=== PATIENT | female | born 1990 | race Caucasian/White ===

== ENCOUNTER → 2019-01-22 | Outpatient (CLI) | payer BC | LOC: LAB FS 09:58 | PROVIDERS: ATTEND Obstetrics & Gynecology | DX: O20.9 Hemorrhage in early pregnancy, unspecified (principal); Z3A.00 Weeks of gestation of pregnancy not specified | CPT/HCPCS: 36415; 84702 ==

== ENCOUNTER 2020-12-21 01:13 | Day surgery (SDC) | payer BC ==
[2020-12-21] VITALS (10 sets, daily range): BP systolic 107–120; BP diastolic 65–77
[~2020-12-21] VITALS: Ht 170.1 cm; Wt 81.6 kg
[2020-12-21] MEDS ORDERED: ONDANSETRON 4 MG/2 ML (SDV) Z0FRAN IVP STA (01:28)
[2020-12-21] MEDS ORDERED: NS IV 1000 ML 1,000 ML IV STA (01:28)
[2020-12-21] MEDS ORDERED: fentaNYL INJ 100 MCG/2 ML AMP IVP STA ×2 (01:28→03:33)
[2020-12-21] MEDS ORDERED: KETOROLAC 30 MG/ML VIAL IVP STA (01:28)
[2020-12-21 01:30] LABS: BACTERIA,URINE TRACE /HPF; BILIRUBIN,URINE NEGATIVE (NEGATIVE); CLARITY,URINE CLEAR; COLOR,URINE YELLOW; GLUCOSE, URINE (UA) NEGATIVE (NEGATIVE); KETONES,URINE NEGATIVE (NEGATIVE); LEUKOCYTE ESTERASE ,URINE NEGATIVE (NEGATIVE); NITRITE,URINE NEGATIVE (NEGATIVE); PH,URINE 7.5 (5-9); PROTEIN,URINE NEGATIVE (NEGATIVE); WBC,URINE 0-2 /HPF
[2020-12-21 01:35] LABS: HEMATOCRIT 43 % (35-52); HEMOGLOBIN 14.8 g/dL (11.5-16.0); MEAN CORPUSCULAR HEMOGLOBIN 32 pg (25-34); MEAN CORPUSCULAR HGB CONC 34 g/dL (32-36); MEAN CORPUSCULAR VOLUME 92 fL (80-99); PLATELET COUNT 297 10^3/uL (130-400); WHITE BLOOD COUNT 13.7 10^3/uL (4.3-11.0)
--- NOTE | 2020-12-21 01:35 | ED Abdominal Pain ---
General Chief Complaint: Abdominal/GI Problems Stated Complaint: RIGHT FLANK AND ABD PAIN Source of Information: Patient History of Present Illness Date Seen by Provider: Dec 21, 2020 Time Seen by Provider: 01:16 Initial Comments 30-year-old female presenting with complaints of low back pain for the last few days and then not feeling well throughout the day today as well as sudden more severe pain at 4 PM. The more severe pain today started more the periumbilical area and moved to her right lower quadrant and flank. Her last menstrual period was approximately 3 weeks ago and she is on control as well as had a tubal ligation in July. She has had nausea but no vomiting. She tried to eat supper around 630 and was feeling too sick to eat very much. She has no burning with urination. She states that she has had frequent urination and small bowel movements throughout the day when she was not feeling well. She denies any fever or chills. She still has her appendix. She did have painful ovarian cysts when she was younger. She denies any blood in urine or stool. Severity/Quality: Severe Location: RLQ, Flank Radiation: RLQ, Flank Modifying Factors: Worsens With Eating, Worsens With Movement, Worsens With Palpation Associated Symptoms: Back Pain (low back pain for last few days); No Chest Pain, No Diaphoresis, No Fever/Chills, No Fatigue, No Headache, No Heartburn; Nausea/Vomiting (nausea but no vomiting); No Shortness of Air, No Swelling/Mass in Abdomen, No Syncope, No Weakness Allergies and Home Medications Allergies Coded Allergies: No Known Drug Allergies (Unverified , 12/21/20) Patient Home Medication List Home Medication List Reviewed: Yes Review of Systems Review of Systems Constitutional: No chills, No fever EENTM: No Symptoms Reported Respiratory: No Symptoms Reported Cardiovascular: No Symptoms Reported Gastrointestinal: See HPI Genitourinary: See HPI; Denies Burning Musculoskeletal: see HPI Skin: No rash Psychiatric/Neurological: Anxiety; Denies Headache Past Zepozot-Cthvoa-Twgmzr Hx Patient Social History Tobacco Use?: No Substance use?: No Alcohol Use?: No Past Medical History Surgeries: Yes Tubal Ligation Psychosocial: Yes Anxiety, Depression Physical Exam Vital Signs Vital Signs - First Documented 12/21/20 01:17 Temp 36.7 Pulse 104 Resp 20 B/P (MAP) 139/93 (108) Pulse Ox 98 O2 Delivery Room Air Capillary Refill : Height/Weight/BMI Height: '" Weight: lbs. oz. kg; BMI Method: General Appearance: WD/WN, moderate distress (tearful and holding right side of abdomen) Respiratory: chest non-tender, lungs clear, normal breath sounds, no respiratory distress, no accessory muscle use Cardiovascular: normal peripheral pulses, regular rate, rhythm Gastrointestinal: soft, no pulsatile mass, abnormal bowel sounds (hypoactive), guarding (RLQ), rebound (right lower quadrant), tenderness (periumbilical and RLQ) Rectal: deferred Extremities: normal range of motion, non-tender, normal capillary refill Neurologic/Psychiatric: alert, oriented x 3, other (anxious and tearful) Skin: normal color, warm/dry Images 1 - periumbilical and RLQ pain with guarding and rebound tenderness Focused Exam Lactate Level 12/21/20 01:24: Lactic Acid Level 0.48L Lactic Acid Level Laboratory Tests Test 12/21/20 01:24 Lactic Acid Level 0.48 MMOL/L (0.50-2.00) L Progress/Results/Core Measures Results/Orders Lab Results Laboratory Tests Test 12/21/20 01:18 12/21/20 01:24 Range/Units Urine Color YELLOW Urine Clarity CLEAR Urine pH 7.5 5-9 Urine Specific [place] 1.015 L 1.016-1.022 Urine Protein NEGATIVE NEGATIVE Urine Glucose (UA) NEGATIVE NEGATIVE Urine Ketones NEGATIVE NEGATIVE Urine Nitrite NEGATIVE NEGATIVE Urine Bilirubin NEGATIVE NEGATIVE Urine Urobilinogen 1.0 < = 1.0 MG/DL Urine Leukocyte Esterase NEGATIVE NEGATIVE Urine RBC (Auto) NEGATIVE NEGATIVE Urine RBC 2-5 H /HPF Urine WBC 0-2 /HPF Urine Squamous Epithelial Cells 10-25 H /HPF Urine Crystals NONE /LPF Urine Bacteria TRACE /HPF Urine Casts NONE /LPF Urine Mucus SMALL H /LPF Urine Culture Indicated NO White Blood Count 13.7 H 4.3-11.0 10^3/uL Red Blood Count 4.69 3.80-5.11 10^6/uL Hemoglobin 14.8 11.5-16.0 g/dL Hematocrit 43 35-52 % Mean Corpuscular Volume 92 80-99 fL Mean Corpuscular Hemoglobin 32 25-34 pg Mean Corpuscular Hemoglobin Concent 34 32-36 g/dL Red Cell Distribution Width 11.9 10.0-14.5 % Platelet Count 297 130-400 10^3/uL Mean Platelet Volume 9.6 9.0-12.2 fL Immature Granulocyte % (Auto) 0 % Neutrophils (%) (Auto) 73 42-75 % Lymphocytes (%) (Auto) 19 12-44 % Monocytes (%) (Auto) 5 0-12 % Eosinophils (%) (Auto) 3 0-10 % Basophils (%) (Auto) 1 0-10 % Neutrophils # (Auto) 9.9 H 1.8-7.8 X 10^3 Lymphocytes # (Auto) 2.6 1.0-4.0 X 10^3 Monocytes # (Auto) 0.7 0.0-1.0 X 10^3 Eosinophils # (Auto) 0.4 H 0.0-0.3 10^3/uL Basophils # (Auto) 0.1 0.0-0.1 10^3/uL Immature Granulocyte # (Auto) 0.0 0.0-0.1 10^3/uL Sodium Level 138 135-145 MMOL/L Potassium Level 4.2 3.6-5.0 MMOL/L Chloride Level 102 98-107 MMOL/L Carbon Dioxide Level 28 21-32 MMOL/L Anion Gap 8 5-14 MMOL/L Blood Urea Nitrogen 11 7-18 MG/DL Creatinine 1.06 0.60-1.30 MG/DL Estimat Glomerular Filtration Rate 62 BUN/Creatinine Ratio 10 Glucose Level 119 H 70-105 MG/DL Lactic Acid Level 0.48 L 0.50-2.00 MMOL/L Calcium Level 9.1 8.5-10.1 MG/DL Corrected Calcium 8.9 8.5-10.1 MG/DL Total Bilirubin 0.6 0.1-1.0 MG/DL Aspartate Amino Transf (AST/SGOT) 21 5-34 U/L Alanine Aminotransferase (ALT/SGPT) 32 0-55 U/L Alkaline Phosphatase 72 40-136 U/L Total Protein 7.6 6.4-8.2 GM/DL Albumin 4.2 3.2-4.5 GM/DL Lipase 25 8-78 U/L My Orders Orders - CATIA COX MD Urine Bedside (12/21/20 01:16) Ua Culture If Indicated (12/21/20 01:16) Comprehensive Metabolic Panel (12/21/20 01:27) Lipase (12/21/20 01:27) Ed Iv/Invasive Line Start (12/21/20 01:27) Cbc With Automated Diff (12/21/20 01:27) Ct Abdomen/Pelvis Wo (12/21/20 01:27) Ketorolac Injection (Toradol Injection) (12/21/20 01:28) Ns Iv 1000 Ml (Sodium Chloride 0.9%) (12/21/20 01:28) Ondansetron Injection (Zofran Injectio (12/21/20 01:28) Fentanyl Inj (Sublimaze Injection) (12/21/20 01:28) Lactic Acid Analyzer (12/21/20 01:36) Ciprofloxacin Iv 400mg/200ml (Cipro Iv S (12/21/20 03:15) Metronidazole 500mg/100ml Ivpb (Flagyl 5 (12/21/20 03:15) Lactated Ringers (Lr 1000 Ml Iv Solution (12/21/20 03:15) Fentanyl Inj (Sublimaze Injection) (12/21/20 03:33) Medications Given in ED Current Medications Medications Dose Ordered Sig/Malika Route Start Time Stop Time Status Last Admin Dose Admin Ciprofloxacin/ Dextrose 200 ml @ 200 mls/hr ONCE ONCE IV 12/21/20 03:15 12/21/20 04:15 DC 12/21/20 03:31 200 MLS/HR Metronidazole 100 ml @ 100 mls/hr ONCE ONCE IV 12/21/20 03:15 12/21/20 04:15 DC 12/21/20 03:31 100 MLS/HR Vital Signs/I&O 12/21/20 01:17 Temp 36.7 Pulse 104 Resp 20 B/P (MAP) 139/93 (108) Pulse Ox 98 O2 Delivery Room Air Progress Progress Note #1: Progress Note Obtain urinalysis with a bedside urine test. Start an IV. Obtain labs and give IV fluids for hydration, Toradol for pain, fentanyl for pain, Zofran for nausea. CT scan of abdomen pelvis without contrast to evaluate for possible kidney stone with sudden onset of pain, acute appendicitis with location of pain, ovarian cyst with rupture with location of pain, diverticulitis, colitis, ischemic bowel. Progress Note #2: Time: 01:34 Progress Note Bedside test was negative. Her urinalysis showed 2-5 red blood cells with 10-25 epithelial cells and some mucus. She had a mild elevation of her white blood cell count to 13.7. Progress Note #3: Time: 02:16 Progress Note Lactic acid is not elevated. Chemistry without acute significant abnormality to account for her pain and symptoms. When rechecked after about 20 min with pain medicine on board she had pain down to 4 out of 10, but still painful to palpation. Nausea resolved. Awaiting CT scan report but on my review of imaging she has possible acute appendicitis with appendix measuring up to 10 mm and surrounding inflammation and stranding. Progress Note #4: Time: 03:[address] scan report printed off the Fax machine and showed acute uncomplicated appendicitis. I discussed this with Dr. Davis and he accepted for admit to do surgery by isaac ace later this am around 10 am. Cipro and Flagyl for antibiotics, continue IVF for hydration, pain meds and nausea meds. Radiologist called with report while I was finished admit orders for the patient from Dr. Davis. Diagnostic Imaging Diagonstic Imaging: CT Plain Films/CT/US/NM/MRI: abdomen, pelvis Comments Impression 1. Acute uncomplicated appendicitis Read by Radiologist Sheridan Esposito MD at 0148 and faxed at [phone] with report called at [phone] Reviewed: Reviewed by Me, Discussed w/Radiologist Departure Communication (Admissions) Time/Spoke to Admitting Phy: 03:11 d/w Dr. Davis for General surgery and will admit for acute appendicitis. Continue IVF, pain meds prn, nausea meds prn, Cipro 500 mg bid and flagyl 500 mg bid. Plan to do Lap appy around 10 am. Impression Primary Impression: Acute appendicitis Qualified Codes: K35.30 - Acute appendicitis with localized peritonitis, without perforation or gangrene Additional Impression: Acute abdominal pain in right lower quadrant Disposition: 30 STILL A PATIENT Condition: Stable Admissions Decision to Admit Reason: Admit from ER (General) Decision to Admit/Date: Dec 21, 2020 Time/Decision to Admit Time: 03:11 Departure-Patient Inst. Referrals: MADELYN SALOMN MD (PCP/Family) Primary Care Physician CATIA COX MD Dec 21, 2020 01:35
[2020-12-21 01:36] LABS: BASOPHILS # (AUTO) 0.1 10^3/uL (0.0-0.1); BASOPHILS % (AUTO) 1 % (0-10); EOSINOPHILS # (AUTO) 0.4 10^3/uL (0.0-0.3); EOSINOPHILS % (AUTO) 3 % (0-10); LYMPHOCYTES # (AUTO) 2.6 X 10^3 (1.0-4.0); LYMPHOCYTES % (AUTO) 19 % (12-44); MEAN PLATELET VOLUME 9.6 fL (9.0-12.2); MONOCYTES # (AUTO) 0.7 X 10^3 (0.0-1.0); MONOCYTES % (AUTO) 5 % (0-12); NEUTROPHILS # (AUTO) 9.9 X 10^3 (1.8-7.8); NEUTROPHILS % (AUTO) 73 % (42-75)
[2020-12-21 01:58] LABS: ALBUMIN 4.2 GM/DL (3.2-4.5); BILIRUBIN,TOTAL 0.6 MG/DL (0.1-1.0); CALCIUM 9.1 MG/DL (8.5-10.1); CREATININE SERUM 1.06 MG/DL (0.60-1.30); POTASSIUM 4.2 MMOL/L (3.6-5.0); TOTAL PROTEIN 7.6 GM/DL (6.4-8.2)
[2020-12-21] MEDS ORDERED: metroNIDAZOLE 500MG/100ML IVPB 100 ML IV ONE (03:15)
[2020-12-21] MEDS ORDERED: CIPROFLOXACIN IV 400MG/200ML 200 ML IV ONE (03:15)
[2020-12-21] MEDS ORDERED: METOCLOPRAMIDE INJ 10 MG/2 ML (REGLAN) IVP PRN (05:45)
[2020-12-21] MEDS: LACTATED RINGERS 1,000 ML IV SCH ×4 (05:57→14:32)
[2020-12-21] MEDS: fentaNYL INJ 100 MCG/2 ML AMP IVP PRN ×2 (05:57→08:20)
--- NOTE | 2020-12-21 07:01 | Diagnostic Imaging Report ---
EXAMINATION: CT abdomen and pelvis without contrast. TECHNIQUE: Multiple contiguous axial images were obtained through the abdomen and pelvis without the use of intravenous contrast. All CT scans use one or more of the following dose optimizing techniques: automated exposure control, MA and/or KvP adjustment based on patient size and exam type or iterative reconstruction. HISTORY: Right lower quadrant and right flank pain COMPARISON: None available. FINDINGS: Limited views of the lower thorax are unremarkable. The liver is normal without focal lesion. There is no biliary ductal dilation. Gallbladder is normal. Pancreas is normal. Spleen is normal. Adrenal glands are normal. The kidneys are normal. There is no hydronephrosis. Urinary bladder is normal. There is acute appendicitis with an appendicolith in the appendix. No abscess or perforation No free fluid or air. No abdominal or pelvic lymphadenopathy. Aorta is normal in caliber without aneurysm. There are no suspicious osseus lesions. IMPRESSION: 1. Acute appendicitis without abscess or perforation. There is no significant disagreement with the preliminary report. Dictated by: Dictated on workstation # [id number]
--- NOTE | 2020-12-21 08:07 | Progress Note-Pre Operative ---
Pre-Operative Progress Note H&P Reviewed The H&P was reviewed, patient examined and no changes noted. Date Seen by Provider: Dec 21, 2020 Time Seen by Provider: 08:00 Date H&P Reviewed: Dec 21, 2020 Time H&P Reviewed: 08:00 Pre-Operative Diagnosis: acute appendiciitis STALIN LEO MD Dec 21, 2020 08:07
[2020-12-21] MEDS ORDERED: HYDR-3817 PO (08:18)
--- NOTE | 2020-12-21 08:19 | Discharge Inst-Surgical ---
D/C Lap Instructions-FELIPA New, Converted, or Re-Newed RX: RX on Chart Follow Up Appt in 2 weeks Activity as tolerated No driving for 24 hours No driving while on pain medications Incentive Spirometry use every 2 hours while awake Regular Diet Symptoms to Report: Fever over 101 degree F, Nausea/Vomiting Infection Signs and Symptoms to report: Increased redness, Foul odor of wound, Increased drainage Bathing instructions: May shower Operative Area Clean/Dry; Keep incision clean/dry If any problems/questions: Contact your physician or go to Emergency Room STALIN LEO MD Dec 21, 2020 08:19
--- NOTE | 2020-12-21 08:50 | HISTORY AND PHYSICAL ---
DATE OF SERVICE: ADMITTING PRIMARY CARE PHYSICIAN: Dr. Seymour Jorge. HISTORY OF PRESENT ILLNESS: The patient is a 30-year-old female who presented with low back pain several days ago; however, began to radiate towards the right lower quadrant of the abdomen at around 4 p.m. She states that the pain worsened over time and was associated with nausea; however, no vomiting. She states that she has had a history of ovarian cysts in the past; however, none recently. She does not report any fever or chills. She also does not report any episodes of loose stools or rectal bleeding. A CT scan was performed, which did show inflammation of the appendix as well as a mild leukocytosis consistent with appendicitis. PAST MEDICAL HISTORY: History of ovarian cyst. PAST SURGICAL HISTORY: Tubal ligation. ALLERGIES: No known drug allergies. MEDICATIONS: None. SOCIAL HISTORY: Negative for smoke, negative for alcohol. FAMILY HISTORY: Noncontributory. VITAL SIGNS: Temperature 36.5, blood pressure 110/73, pulse 69, respirations 18, pulse ox 100% on room air. REVIEW OF SYSTEMS: Well-nourished female, currently in no acute distress. She is not experiencing any shortness of breath and difficulty breathing. No chest pain, palpitations, diaphoresis. Intermittent episodes of nausea as well as anorexia. No vomiting. No diarrhea, no rectal bleeding. No fever, chills, no recent inadvertent weight loss. All other review of systems negative. PHYSICAL EXAMINATION: CHEST: Clear. Good breath sounds bilaterally. HEART: Regular, no murmurs. EXTREMITIES: No lower extremity edema, negative Homans sign. HEENT: No scleral icterus. NECK: No cervical lymphadenopathy. ABDOMEN: Soft, nondistended. There is pain in the right lower abdominal quadrant at McBurney's point. There is voluntary guarding, no rebound. SKIN: Warm, dry. LABORATORY DATA: WBC 13.7, hemoglobin 14.8, hematocrit 43, platelets 297. BUN 11, creatinine 1.06. Liver function enzymes are normal. ASSESSMENT AND PLAN: A 30-year-old female with acute appendicitis. Natural history of this disease process was explained to the patient and we will then proceed with a diagnostic laparoscopy as well as a laparoscopic appendectomy. Job ID: [id number] DocumentID: [id number] Dictated Date: 12/21/2020 08:14:02 Truck Leasing Manager Date: 12/21/2020 08:50:08 Dictated By: STALIN LEO MD MTDD
[2020-12-21] MEDS ORDERED: LIDOCAINE/EPI 1%-1:100,000 (XYLOCAINE) 10 ML ONE (09:44)
[2020-12-21] MEDS: LACTATED RINGERS 1,000 ML IV PRN ×2 (10:16→11:00)
[2020-12-21] MEDS ORDERED: LIDOCAINE PF 2% 5 ML (XYLOCAINE) VIAL ONE (10:25)
[2020-12-21] MEDS ORDERED: ROCURONIUM 10 MG/ML 5 ML SYRINGE IV ONE (10:25)
[2020-12-21] MEDS ORDERED: MIDAZOLAM 2 MG/2 ML (VERSED) VIAL ONE (10:25)
[2020-12-21] MEDS ORDERED: SUCCINYLCHOLINE INJ 100 MG/5 ML SYR/VIAL ONE (10:25)
[2020-12-21] MEDS ORDERED: proPOfol 200 MG/20 ML (DIPRIVAN) VIAL IV ONE (10:25)
[2020-12-21] MEDS ORDERED: fentaNYL INJ 100 MCG/2 ML AMP ONE ×2 (10:25→10:56)
[2020-12-21] MEDS ORDERED: morphine INJ 10 MG/ML 1ML (SYR OR VIAL) ONE (10:55)
[2020-12-21] MEDS ORDERED: ONDANSETRON 4 MG/2 ML (SDV) Z0FRAN ONE ×2 (10:56→11:12)
[2020-12-21] MEDS ORDERED: MEPERIDINE (DEMEROL) INJ 50 MG/ML ONE (10:56)
[2020-12-21] MEDS ORDERED: NEOSTIGMINE 3 MG/3 ML VIAL ONE (11:11)
[2020-12-21] MEDS ORDERED: GLYCOPYRROLATE 0.2 MG/ML (ROBINUL) 2 ML VIAL ONE (11:11)
--- NOTE | 2020-12-21 11:11 | Progress Note-Post Operative ---
Post-Operative Progess Note Surgeon (s)/Box Machine Operator (s) Surgeon STALIN LEO MD Box Machine Operator: imtiaz bland LITERACY TUTOR Pre-Operative Diagnosis acute appendiciitis Post-Operative Diagnosis same Procedure & Operative Findings Date of Procedure 12/21/20 Procedure Performed/Findings laparoscopic appendectomyt Anesthesia Type get Estimated Blood Loss Estimated blood loss (mL): minimal Specimens/Packing Specimens Removed appendix STALIN LEO MD Dec 21, 2020 11:10
[2020-12-21] MEDS ORDERED: KETOROLAC 30 MG/ML VIAL ONE (11:12)
[2020-12-21] MEDS ORDERED: SEVOFLURANE (ULTANE) 15 ML INHAL SOLN ONE (11:21)
--- NOTE | 2020-12-21 11:35 | Anesthesia-General Post-Op ---
General Patient Condition Mental Status/LOC: Same as Preop Cardiovascular: Satisfactory Nausea/Vomiting: Absent Respiratory: Satisfactory Pain: Controlled Complications: Absent Post Op Complications Complications None Follow Up Care/Instructions Patient Instructions None needed. Anesthesia/Patient Condition Patient Condition Patient is doing well, no complaints, stable vital signs, no apparent adverse anesthesia problems. No complications reported per nursing. PAULO ECHEVARRIA CRNA Dec 21, 2020 11:35
[2020-12-21] MEDS ORDERED: MEPERIDINE (DEMEROL) INJ 50 MG/ML IVP ONE (11:45)
[2020-12-21] MEDS ORDERED: fentaNYL INJ 100 MCG/2 ML AMP IVP ONE (11:45)
[2020-12-21] MEDS ORDERED: HYDROmorphone 2 MG/ML VIAL (DILAUDID) IV ONE (11:45)
[2020-12-21] MEDS ORDERED: ONDANSETRON 4 MG/2 ML (SDV) Z0FRAN IVP PRN (11:45)
[2020-12-21] MEDS: HYDROcodone/APAP 7.5 MG/325 MG (LORTAB, LORCET PLUS) TABLET PO PRN ×2 (12:28→17:21)
--- NOTE | 2020-12-21 15:26 | OPERATIVE REPORT ---
DATE OF SERVICE: 12/21/2020 ATTENDING PRIMARY CARE PHYSICIAN: Dr. Seymour Jorge. PREOPERATIVE DIAGNOSIS: Acute appendicitis. POSTOPERATIVE DIAGNOSIS: Acute appendicitis. PROCEDURES: Laparoscopic appendectomy. SURGEON: Stalin Leo MD. ANESTHESIA: General endotracheal. ESTIMATED BLOOD LOSS: Minimal. FINDINGS: Inflamed appendix, no perforation. DISPOSITION: The patient tolerated the procedure well. HOSPITAL COURSE: The patient is a 22-year-old female who presented to [facility] with acute onset of pain starting in the back. However, radiated towards the right lower abdominal quadrant. She states that the pain worsened over time and this was also associated with anorexia; however, no vomiting. A CT scan was performed, which did show inflammation of the appendix as well as a mild leukocytosis consistent with appendicitis. The patient was brought to the operating room, laid supine on the table. After adequate IV pain and sedative medications and general endotracheal intubation, the abdomen was prepped and draped in standard surgical fashion. A 0.5% Marcaine with epinephrine was then used to anesthetize the overlying skin in the left upper abdominal quadrant and a transverse skin incision made using a 15 blade. An 0 silk suture was applied to the medial aspect incision for retraction and a Veress needle inserted with a low opening pressure of 0 mmHg. The abdomen was then insufflated to 15 mmHg pressure. The Veress needle removed and a 5 mm XL trocar placed followed by a 5 mm 45-degree angle laparoscope visualizing the peritoneal cavity. A 4-quadrant abdominal exploration was performed. There was an inflamed appendix, no perforation. Uterus and ovaries appeared normal, small bowel appeared normal. Under direct visualization, we then proceeded to place a supraumbilical 10 mm port after the skin and peritoneal lining were anesthetized using 0.5% Marcaine with epinephrine and a transverse skin incision made using 15 blade. In a similar manner, a suprapubic 5 mm port was placed. The patient was then placed in Trendelenburg position as well as plane right side up, left side down. The appendix was then retracted towards the anterior abdominal wall and a window created between the mesoappendix and the base of the appendix at the cecum using a [place] dissector. The appendix was then stapled and transected at the cecal base using a ELVI 45 mm stapler with a 2.5 mm thickness load. The mesentery was then excised using the same stapler with a 2.0 mm thickness reload. Good hemostasis was observed. The appendix was removed through the 10 mm port site using an EndoCatch bag. The 10 mm port site fascia and peritoneum was then closed under direct visualization using a Jerry-Greg device and 0 Vicryl suture. The abdomen was desufflated and remaining ports removed. All skin incisions were closed using 4-0 Monocryl running subcuticular sutures. Wounds were then cleaned and covered with Dermabond. The patient tolerated the procedure well. We will start IV normal pain medication as well as a clear liquid diet. Once she is tolerating clears, has good pain control with oral pain medications, ambulating well, we will discharge her home. HOME-GOING INSTRUCTIONS: She will be instructed to do no heavy lifting or exertion for the next two weeks. Job ID: [id number] DocumentID: [id number] Dictated Date: 12/21/2020 11:15:55 Jewelry Coater Date: 12/21/2020 15:25:59 Dictated By: STALIN LEO MD
[2020-12-21] MEDS ORDERED: metroNIDAZOLE 500 MG/100 ML IVPB (PRE-MIX) IV SCH (16:00)
[2020-12-21] MEDS ORDERED: CIPROFLOXACIN 400 MG/D5W 200 ML (PRE-MIX) IV SCH (16:00)
== END 2020-12-21 17:55 | disposition home or self-care (01) ==
LOC: EDUNIT# 01:13 → ER FS 01:15 → 4TH 05:19 → SDC 05:19 → UNDOADMOB 05:19 → 4TH 05:19 → UNDODISOB 17:55 → SDC 17:55
PROVIDERS: ATTEND Surgery
DX: K35.80 Unspecified acute appendicitis (principal); F41.9 Anxiety disorder, unspecified; F32.9 Major depressive disorder, single episode, unspecified; Z79.3 Long term (current) use of hormonal contraceptives; Z79.899 Other long term (current) drug therapy; Z11.2 Encounter for screening for other bacterial diseases
CPT/HCPCS: 36415; 74176; 80053; 81000; 83605; 83690; 84703; 85025; 87081; 88304